=== PATIENT | male | born 1985 | race Caucasian/White ===

== ENCOUNTER 2018-08-20 03:54 | Emergency (ER) | payer BC ==
[2018-08-20] MEDS ORDERED: METOCLOPRAMIDE HYDROCHLORIDE 5 MG/ML SOL IV ONE (04:08)
[2018-08-20] MEDS ORDERED: SODIUM CHLORIDE 0.9% 1000ML 1,000 ML IV ONE (04:08)
[2018-08-20] MEDS ORDERED: SODIUM CHLORIDE 0.9% FLUSH 10 ML SOL IV PRN (04:08)
[2018-08-20] MEDS ORDERED: METOCLOPRAMIDE HYDROCHLORIDE 5 MG/ML SOL ONE (04:10)
[2018-08-20] MEDS ORDERED: SUMATRIPTAN SUCCINATE 6 MG/0.5 ML SOL SC ONE ×2 (04:24→04:25)
[2018-08-20 04:38] VITALS: RESP 16; TEMP 97.6
[2018-08-20 05:30] VITALS: BP 137/76; PULSE 76; O2SAT 100
== END 2018-08-20 05:33 | disposition home or self-care (01) ==
LOC: ED 03:54
DX: G43.909 Migraine, unspecified, not intractable, without status migrainosus (principal)
CPT/HCPCS: 70450; 96365; 96372; 96374; 99283; 99284; J2765; J3030